=== PATIENT | female | born 1975 | race Two or more races ===

== ENCOUNTER 2018-08-27 19:57 | Emergency (ER) | payer OTHER ==
[2018-08-27 20:09] VITALS: BP 124/82; PULSE 76; TEMP 97.9; BMI 37.0
--- NOTE | 2018-08-27 20:12 | PDOC ---
Rapid Medical Evaluation Chief Complaint: Pain, Acute Medical Evaluation: Allergies Allergy/AdvReac Type Severity Reaction Status Date / Time No Known Allergies Allergy Verified 11/18/14 19:33 08/27/18 20:06 I have performed a brief in-person evaluation of this patient. The patient presents with a chief complaint of:right knee pain Pertinent physical exam findings: swelling and tenderness to right knee, walks with limp I have ordered the following: right knee xray The patient will proceed to the ED for further evaluation. 08/27/18 20:10 Discharge Disposition - Referrals Referrals: Kimi Richards [Primary Care Provider] - - Patient Instructions - Post Discharge Activity
--- NOTE | 2018-08-27 20:58 | PDOC ---
History of Present Illness - General Chief Complaint: Pain, Acute Stated Complaint: RIGHT KNEE PAIN Time Seen by Provider: 08/27/18 20:48 - History of Present Illness Initial Comments: 08/27/18 20:55 43-year-old female with a past medical history significant for GERD and depression presents for evaluation of atraumatic onset of right knee pain 5 days first noticed on the treadmill while at the gym Past History - Past Medical History Allergies/Adverse Reactions: Allergies Allergy/AdvReac Type Severity Reaction Status Date / Time No Known Allergies Allergy Verified 08/27/18 20:09 Home Medications: Ambulatory Orders Fluoxetine HCl [Prozac] 40 mg PO HS 11/18/14 COPD: No Psychiatric Problems: Yes (DEPRESSION) - Surgical History Abdominal Surgery: Yes - Suicide/Smoking/Psychosocial Hx Smoking History: Never smoked Hx Alcohol Use: No Review of Systems - Review of Systems Musculoskeletal: Yes: Joint Pain *Physical Exam - Vital Signs Last Vital Signs Temp Pulse Resp BP Pulse Ox 97.9 F 76 18 124/82 98 08/27/18 20:06 08/27/18 20:06 08/27/18 20:06 08/27/18 20:06 08/27/18 20:06 - Physical Exam Comments: 08/27/18 20:56 Right knee skin color and temperature are normal extensor mechanism is intact range of motion 0-90 beyond that causes pain. She has mild medial lateral joint line tenderness no instability or patellofemoral instability. Thigh and calf are soft and nontender she is neurovascularly intact. Moderate Sedation - Procedure Monitoring Vital Signs: Procedure Monitoring Vital Signs Temperature 97.9 F 08/27/18 20:06 Pulse Rate 76 08/27/18 20:06 Respiratory Rate 18 08/27/18 20:06 Blood Pressure 124/82 08/27/18 20:06 O2 Sat by Pulse Oximetry (%) 98 08/27/18 20:06 *DC/Admit/Observation/Transfer Diagnosis at time of Disposition: Knee pain, right - Discharge Dispostion Disposition: HOME Condition at time of disposition: Stable Decision to Admit order: No - Referrals Referrals: Kimi Richards [Primary Care Provider] - Alexi Adam MD [Staff Physician] - - Patient Instructions Printed Discharge Instructions: DI for Knee Pain Additional Instructions: He may weight-bear as tolerated with use of the knee immobilizer and crutches. He may come out of the knee immobilizer multiple times a day to do gentle range of motion of the knee. Tylenol as directed for pain. Avoid anti-inflammatories because of the omeprazole and your stomach issues. Follow-up with orthopedics in 2-3 days for further evaluation and treatment options. - Post Discharge Activity
== END 2018-08-27 21:03 | disposition home or self-care (01) ==
LOC: JERFT 19:57
DX: M25.561 Pain in right knee (principal); F32.9 Major depressive disorder, single episode, unspecified; K21.9 Gastro-esophageal reflux disease without esophagitis
CPT/HCPCS: 99281-25

== ENCOUNTER 2019-08-29 13:58 | Emergency (ER) | payer OTHER ==
--- NOTE | 2019-08-29 14:06 | PDOC ---
Rapid Medical Evaluation Chief Complaint: Pain, Acute Time Seen by Provider: 08/29/19 14:04 Medical Evaluation: Allergies Allergy/AdvReac Type Severity Reaction Status Date / Time No Known Allergies Allergy Verified 08/27/18 20:09 08/29/19 14:04 I have performed a brief in-person evaluation of this patient. The patient presents with a chief complaint of:neck pain x3 days, felt pinch and no relief with Motrin Pertinent physical exam findings: tender tight muscles to neck I have ordered the following: nothing The patient will proceed to the ED for further evaluation. Discharge Disposition - Diagnosis Neck pain on left side - Referrals - Patient Instructions - Post Discharge Activity
[2019-08-29 14:07] VITALS: BP 117/77; PULSE 72; TEMP 98.5; BMI 36.6
--- NOTE | 2019-08-29 14:56 | PDOC ---
History of Present Illness - General Chief Complaint: Pain, Acute Stated Complaint: LT SIDE NECK PAIN/EARACHE Time Seen by Provider: 08/29/19 14:04 History Source: Patient - History of Present Illness Initial Comments: 08/29/19 16:45 Chief complaint: Neck pain Patient 44-year-old female who states she was driving on Monday, 2 days ago and felt a pinch to her left neck. Since then the area has hurt, it is to the side front on the left side and she feels pulsating in her ear and pain. No fever. No nausea or vomiting. No numbness. Patient states she feels a little dizzy sometimes. GENERAL/CONSTITUTIONAL: No fever, weakness. dizziness HEAD, EYES, EARS, NOSE AND THROAT: No change in vision. No ear pain or discharge. No sore throat. CARDIOVASCULAR: No chest pain RESPIRATORY: No shortness of breath or cough GASTROINTESTINAL: No pain, nausea, vomiting, diarrhea or constipation GENITOURINARY: No dysuria MUSCULOSKELETAL: +neck, noback pain SKIN: No rash NEUROLOGIC: No headache, vertigo, loss of consciousness, or loss of sensation. GENERAL: The patient is awake, alert, and fully oriented, in no acute distress. HEAD: Normal with no signs of trauma. EYES: Pupils equal, round and reactive to light, sclera anicteric, conjunctiva clear. ENT: Ears clear, TMs normal pharynx: no erythema, no exudate, uvula midline, no sub-lingular swelling NECK: supple, questionable slight swelling on the left anterior area, tender, no bruits, no obvious palpable lymphadenopathy CHEST: clear, nontender, rr ABD: soft, nontender BACK: no tenderness or signs of injury EXTREMITIES: Normal range of motion, no edema. NEUROLOGICAL: Normal speech, normal gait. Cranial nerves II through XII grossly intact, no gross focal abnormalities SKIN: Warm, Dry Past History - Past Medical History Allergies/Adverse Reactions: Allergies Allergy/AdvReac Type Severity Reaction Status Date / Time No Known Allergies Allergy Verified 08/29/19 14:07 Home Medications: Ambulatory Orders Fluoxetine HCl [Prozac] 40 mg PO HS 11/18/14 Oxycodone HCl/Acetaminophen [Percocet 5-325 mg Tablet] 1 tab PO Q4H PRN #20 tablet MDD 6 08/29/19 COPD: No Psychiatric Problems: Yes (DEPRESSION) - Surgical History Abdominal Surgery: Yes - Psycho Social/Smoking Cessation Hx Smoking History: Never smoked Hx Alcohol Use: No *Physical Exam - Vital Signs Last Vital Signs Temp Pulse Resp BP Pulse Ox 98.5 F 72 18 117/77 98 08/29/19 14:00 08/29/19 14:00 08/29/19 14:00 08/29/19 14:00 08/29/19 14:00 ED Treatment Course - LABORATORY CBC & Chemistry Diagram: 08/29/19 15:25 08/29/19 15:25 Medical Decision Making - Medical Decision Making 08/29/19 16:49 44-year-old female with no significant medical history with sudden onset of left neck pain 2 days ago, tenderness, pulsating to the left ear, with questionable on and off dizziness. Will get labs, CTA neck and head to rule out any acute pathology, dissection. 08/29/19 18:33 CTA imaging is negative, will treat with pain medicine. Discussed issues, findings, results, applicable medications and treatments and follow-up. All these were understood and all questions were answered Discharge - Discharge Information Problems reviewed: Yes Clinical Impression/Diagnosis: Neck pain on left side Condition: Stable Disposition: HOME - Admission No - Additional Discharge Information Prescriptions: Oxycodone HCl/Acetaminophen [Percocet 5-325 mg Tablet] 1 tab PO Q4H PRN #20 tablet MDD 6 PRN Reason: Pain Prescription Drug Monitoring Program (I-STOP) results: I-STOP not reviewed - Follow up/Referral - Patient Discharge Instructions Additional Instructions: No heavy lifting or bending Apply ice to the area 20 minutes every 2 hours for the next 2 days Continue taking Motrin 600 mg every 6 hours for pain. If still in pain he can also take Percocet one to 2 tablets every 4 hours. Return to the nearest ER if numbness, weakness, severe pain, problems with urinating or having bowel movements. You were given a copy of the CT report, bring this to your doctor and make an appointment in the next few days for reevaluation - Post Discharge Activity
[2019-08-29 15:35] LABS: BASO % 0.9 % (0-2.0); EOS % 2.4 % (0-4.5); HEMATOCRIT 36.8 % (32.4-45.2); HEMOGLOBIN 11.9 GM/dL (10.7-15.3); LYMPH % 30.8 % (8-40); MCH 26.6 pg (25.7-33.7); MCHC 32.4 g/dl (32.0-36.0); MEAN PLT VOLUME 8.6 fl (7.5-11.1); MONO % 4.7 % (3.8-10.2); NEUT % 61.2 % (42.8-82.8); PLATELET COUNT 385 K/MM3 (134-434); RBC 4.49 M/mm3 (3.60-5.2); RDW 17.1 % (11.6-15.6); WHITE BLOOD COUNT 7.7 K/mm3 (4.0-10.0)
[2019-08-29] MEDS ORDERED: diazePAM 5 MG TABLET PO ONE (15:37)
[2019-08-29 15:48] LABS: INR 0.95 (0.83-1.09); PROTHROMBIN TIME (PATIENT) 11.2 SEC (9.7-13.0)
[2019-08-29] MEDS ORDERED: diazePAM 5 MG TABLET ONE (15:49)
[2019-08-29 15:51] LABS: ACTIVATED PTT 40.5 SECONDS (25.2-36.5)
[2019-08-29 16:07] LABS: ALBUMIN 3.8 g/dl (3.4-5.0); BILIRUBIN,TOTAL 0.2 mg/dL (0.2-1); BLOOD UREA NITROGEN 10.6 mg/dL (7-18); CREATININE 0.7 mg/dL (0.55-1.3); POTASSIUM 4.2 mmol/L (3.5-5.1); TOT PROT 7.7 g/dl (6.4-8.2)
[2019-08-29] MEDS ORDERED: KETOROLAC TROMETHAMINE 30 MG/1 ML VIAL IM ONE (18:34)
[2019-08-29] MEDS ORDERED: KETOROLAC TROMETHAMINE 30 MG/1 ML VIAL ONE (18:36)
== END 2019-08-29 18:49 | disposition home or self-care (01) ==
LOC: JERFT 13:58
PROC: 3E0233Z Introduction of Anti-inflammatory into Muscle, Percutaneous Approach (ICD-10-PCS; principal; 2019-08-29)
DX: M54.2 Cervicalgia (principal); F32.9 Major depressive disorder, single episode, unspecified
CPT/HCPCS: 36415; 70496-TC; 70498-TC; 80053; 85025; 85610; 85730; 99282-25; Q9967

== ENCOUNTER 2019-12-01 12:25 | Emergency (ER) | payer OTHER ==
[2019-12-01 12:31] VITALS: BP 104/64; PULSE 82; TEMP 98; BMI 34.7
[2019-12-01] MEDS ORDERED: KETOROLAC TROMETHAMINE 30 MG/1 ML VIAL IM ONE (12:55)
[2019-12-01] MEDS ORDERED: KETOROLAC TROMETHAMINE 30 MG/1 ML VIAL ONE (13:52)
--- NOTE | 2019-12-01 13:53 | PDOC ---
History of Present Illness - General Chief Complaint: Pain Stated Complaint: LFT KNEE PAIN Time Seen by Provider: 12/01/19 12:52 History Source: Patient Exam Limitations: No Limitations - History of Present Illness Initial Comments: 12/01/19 13:55 HISTORY OF PRESENT ILLNESS: 44-year-old woman past medical history of gastritis and right knee pain who presents emergency department for evaluation of atraumatic left knee pain which is progressively worsening over the past 2 to 3 weeks. Patient reports she has pain when she stands for long periods of time and occasionally while walking. She denies any intermittent claudication. No recent travel or sick contacts. PAST MEDICAL HISTORY: See HPI SURGICAL HISTORY: Denies ALLERGIES: No known drug allergies REVIEW OF SYSTEMS General/Constitutional: Denies fever or chills. Denies weakness, weight change. HEENT: Denies change in vision. Denies ear pain or discharge. Denies sore throat. Cardiovascular: Denies chest pain or shortness of breath. Respiratory: Denies cough, wheezing, or hemoptysis. Gastrointestinal: Denies nausea, vomiting, diarrhea or constipation. Denies rectal bleeding. Genitourinary: Denies dysuria, frequency, or change in urination. Musculoskeletal: See HPI Skin and breasts: Denies rash or easy bruising. Neurologic: Denies headache, vertigo, loss of consciousness, or loss of sensation. Psychiatric: Denies depression or anxiety. Endocrine: Denies increased thirst. Denies abnormal weight change. Hematologic/Lymphatic: Denies anemia, easy bleeding, or history of blood clots. Allergic/Immunologic: Denies hives or skin allergy. Denies latex allergy. PHYSICAL EXAM General Appearance: Well-appearing, appropriately dressed. No apparent distress, no intoxication. Vascular Pulses: Dorsalis-Pedis (R): 2+, Dorsalis-Pedis (L): 2+ Musculoskeletal/Extremities: Normal inspection. FROM of all extremities, normal capillary refill. Pelvis Stable. No CVA tenderness. No tenderness to extremities, pedal edema, swelling, erythema or deformity. Patella is mobile. Negative Phan's sign. Neurovascularly intact. Past History - Past Medical History Allergies/Adverse Reactions: Allergies Allergy/AdvReac Type Severity Reaction Status Date / Time No Known Allergies Allergy Verified 12/01/19 12:31 Home Medications: Ambulatory Orders Fluoxetine HCl [Prozac] 40 mg PO HS 11/18/14 Oxycodone HCl/Acetaminophen [Percocet 5-325 mg Tablet] 1 tab PO Q4H PRN #20 tablet MDD 6 08/29/19 COPD: No Psychiatric Problems: Yes (DEPRESSION) - Surgical History Abdominal Surgery: Yes - Psycho Social/Smoking Cessation Hx Smoking History: Never smoked Hx Alcohol Use: No *Physical Exam - Vital Signs Last Vital Signs Temp Pulse Resp BP Pulse Ox 98.0 F 82 18 104/64 98 12/01/19 12:29 12/01/19 12:29 12/01/19 12:29 12/01/19 12:29 12/01/19 12:29 ED Treatment Course - RADIOLOGY Radiology Studies Ordered: Category Date Time Status KNEE 2 POS-LEFT [RAD] Stat Radiology 12/01/19 12:55 Completed DUPLEX VASCUL US-1 LEG [US] Stat Ultrasound 12/01/19 12:55 Completed Medical Decision Making - Medical Decision Making 12/01/19 13:52 A/P: 44-year-old woman with atraumatic left knee pain Full range of motion noted. Patella is mobile No palpable masses, cords or calf swelling noted No bony tenderness, deformity, crepitus or step-off is present to the bones of the left leg X-rays, ultrasounds, Toradol 30 mg IM now X-rays of the knee as read by Dr. Canales: No acute left knee pathology. No comparison studies. Ultrasound is read by Dr. Cuevas: No DVT is identified involving the left leg. Note is made of an approximate 2.7 x 1.5 x 1.0 cm popliteal fossa cyst without obvious rupture or dissection. Discharge home with orthopedic follow-up I discussed the physical exam findings, ancillary test results and final diagnoses with the patient. I answered all of the patient's questions. The patient was satisfied with the care received and felt comfortable with the discharge plan and treatment plan. The patient will call their primary care physician within 24 hours to arrange follow-up and will return to the Emergency Department with any new, persistent or worsening symptoms. Portions of this note have been documented using voice recognition software. As a result, errors may occur in the warehouse distribution associate process. Effort has been made to correct all grammatical and warehouse distribution associate error, but some may have been missed which may produce sporadic inaccurate warehouse distribution associate or nonsensical phrases. Discharge - Discharge Information Problems reviewed: Yes Clinical Impression/Diagnosis: Conklin's cyst of knee Qualifiers: Laterality: left Qualified Code(s): M71.22 - Synovial cyst of popliteal space [Conklin], left knee Condition: Stable Disposition: HOME - Admission No - Follow up/Referral Referrals: Patrick Sousa MD [Staff Physician] - - Patient Discharge Instructions Additional Instructions: There is usually nothing to do for a Conklin's cyst. Take Tylenol and Motrin as needed for pain. If needed follow-up with orthopedist at the number provided for continued evaluation. Return to the emergency department for any new or worsening symptoms. Thank you very much for choosing us to provide your emergent healthcare needs. - Post Discharge Activity
== END 2019-12-01 13:56 | disposition home or self-care (01) ==
LOC: JERFT 12:25
PROC: 3E0233Z Introduction of Anti-inflammatory into Muscle, Percutaneous Approach (ICD-10-PCS; principal; 2019-12-01)
DX: M71.22 Synovial cyst of popliteal space [Baker], left knee (principal); F32.9 Major depressive disorder, single episode, unspecified
CPT/HCPCS: 73560-TC-LT-FY; 93971-TC; 96372; 99284-25

== ENCOUNTER 2019-12-08 19:43 | Emergency (ER) | payer OTHER ==
--- NOTE | 2019-12-08 20:01 | PDOC ---
Rapid Medical Evaluation Medical Evaluation: Allergies Allergy/AdvReac Type Severity Reaction Status Date / Time No Known Allergies Allergy Verified 12/01/19 12:31 12/08/19 19:53 HPI: COVID-19 CDC guideline data points: The patient is a 44 F presents with exposure to, confirmed COVID-19 with associated symptoms of fever, dry cough, SOB, anorexia, no taste or smell, or diarrhea x 8 days. Patient works at [employer], complicated by this/these comorbidities: asthma, gastritis ROS: difficulty breathing, (+) shortness of breath, chest pain, lightheadedness, dizziness, nausea, vomiting and (+) diarrhea. Other 12 point ROS reviewed and negative. Exam: General: NAD, Well-Appearing, Awake, Alert Oriented x3. Vital signs stable. ENT: No rhinorrhea or nasal congestion. Neck: FROM, no midline tenderness. Lungs: Clear to auscultation bilaterally without wheezes, rhonchi or rales. Normal excursion. Patient is able to speak in full sentences. Heart: HR: Regular rhythm, S1-S2 present, no murmurs rubs or gallops. Abdomen: Non-distended. MSK/Extremities: No decrease ROM, No obvious deformities. No obvious cyanosis noted. Neuro: Normal Gait, Cranial Nerves II through XII Grossly Intact. Skin: No obvious rashes, bruising. Color Normal Appearing. Assessment/Plan: [Cough/fever] Patient has a history of this/these comorbidities: Asthma denies recent travel and known COVID exposure. 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
[2019-12-08 20:17] VITALS: BP 147/90; PULSE 81; TEMP 98.5; BMI 34.4
--- NOTE | 2019-12-08 20:59 | PDOC ---
Rapid Medical Evaluation Chief Complaint: Cold Symptoms Time Seen by Provider: 12/08/19 19:57 Medical Evaluation: Allergies Allergy/AdvReac Type Severity Reaction Status Date / Time No Known Allergies Allergy Verified 12/01/19 12:31 Vital Signs Temp Pulse Resp BP Pulse Ox 98.5 F 81 20 147/90 99 12/08/19 20:11 12/08/19 20:11 12/08/19 20:11 12/08/19 20:11 12/08/19 20:11 12/08/19 20:53 HPI: COVID-19 CDC guideline data points: The patient is a 44 y/o female presents with possible exposure to, suspected, or confirmed COVID-19 with associated symptoms of cough and sob x 1 week. Pt has hx of asthma and using the albuterol inhaler as needed with good effect. pt is an [employer] at [employer] office ROS: NEGATIVE: , chest pain, lightheadedness, dizziness, nausea, vomiting and diarrhea. Other 12 point ROS reviewed and negative. Exam: General: NAD, Well-Appearing, Awake, Alert Oriented x3. Vital signs stable. ENT: No rhinorrhea or nasal congestion. Neck: FROM, no midline tenderness. Lungs: Clear to auscultation bilaterally without wheezes, rhonchi or rales. Normal excursion. Patient is able to speak in full sentences. Heart: HR: [81 ] Regular rhythm, S1-S2 present, no murmurs rubs or gallops. Abdomen: Non-distended. MSK/Extremities: No decrease ROM, No obvious deformities. No obvious cyanosis noted. Neuro: Normal Gait, Cranial Nerves II through XII Grossly Intact. Skin: No obvious rashes, bruising. Color Normal Appearing. Assessment/Plan: [Cough/fever] Patient has a history of asthma and was ordered for cxr and covid testing 12/08/19 20:56 CXR shows left infiltrate. Pt ambulated ED ramp and repeat vitals 97% on RA, 87 pulse ... Azithromycin ordered 12/08/19 20:59 Discharge Disposition - Diagnosis Pneumonia - Discharge Dispostion Disposition: HOME Condition at time of disposition: Good - Referrals - Patient Instructions Printed Discharge Instructions: [facility]-Coronavirus Instructions, [facility] COVID-19 Isolation Protocol, DI for Pneumonia -- Adult Additional Instructions: You were seen for your cough and possible Coronavirus (COVID-19) Take antibiotic as prescribed and quarantine until you receive results Take Tylenol 650 mg every 6 hours as needed for fever or pain. You may take Robitussin or other [id number] cough syrup. Follow the dosing instructions on the bottle. Warm tea, honey, and salt water gargles may help your symptoms. Please take precautions and self quarantine for 2 weeks and follow-up with your primary care doctor and the Department of Health. Return to the nearest emergency department for shortness of breath, difficulty breathing, chest pain, or if you have any changes in your symptoms. - Post Discharge Activity
== END 2019-12-08 21:12 ==
LOC: JER 19:43
DX: J18.9 Pneumonia, unspecified organism (principal)
CPT/HCPCS: 71045-TC-FY; 99283-25; U0002

== ENCOUNTER 2020-07-20 09:00 | Emergency (ER) | payer OTHER ==
[2020-07-20 09:14] VITALS: BP 125/70; PULSE 61; TEMP 98.7; BMI 38.5
[2020-07-20] MEDS ORDERED: KETOROLAC TROMETHAMINE 30 MG/1 ML VIAL ONE (09:36)
[2020-07-20] MEDS ORDERED: KETOROLAC TROMETHAMINE 30 MG/1 ML VIAL IM ONE (09:36)
== END 2020-07-20 10:14 | disposition home or self-care (01) ==
LOC: JERFT 09:00
PROC: 3E0233Z Introduction of Anti-inflammatory into Muscle, Percutaneous Approach (ICD-10-PCS; principal; 2020-07-20)
DX: M25.561 Pain in right knee (principal); G89.29 Other chronic pain
CPT/HCPCS: 73562-TC-RT-FY; 99284-25

== ENCOUNTER 2020-08-20 09:23 | Day surgery (SDC) | payer OTHER ==
[2020-08-18 16:19] VITALS: BMI 38.0
[2020-08-20] MEDS ORDERED: MIDAZOLAM HCL 2 MG/2 ML SINGLE DOSE VIAL ONE (11:40)
[2020-08-20] MEDS ORDERED: PROPOFOL 20 ML ONE ×2 (11:40→13:11)
[2020-08-20] MEDS ORDERED: ONDANSETRON 4 MG/2 ML VIAL ONE ×3 (11:40→13:11)
[2020-08-20] MEDS ORDERED: DEXAMETHASONE SOD PHOSPHATE 4 MG/1 ML VIAL ONE ×3 (11:40→13:11)
[2020-08-20] MEDS ORDERED: KETOROLAC TROMETHAMINE 30 MG/1 ML VIAL ONE (13:11)
[2020-08-20] MEDS ORDERED: ceFAZolin SODIUM 1 GM VIAL ONE (13:11)
[2020-08-20] MEDS ORDERED: BUPIVACAINE HCL/PF 0.25% (2.5MG/ML) 10 ML VIAL IJ ONE (13:31)
[2020-08-20] MEDS ORDERED: LACTATED RINGERS SOLUTION 1,000 ML IV SCH (14:00)
[2020-08-20] MEDS ORDERED: oxyCODONE HCL 5 MG TABLET PO PRN ×2 (14:00)
[2020-08-20] MEDS ORDERED: ONDANSETRON 4 MG/2 ML VIAL IVPUSH PRN (14:00)
[2020-08-20 15:09] VITALS: TEMP 97.7
[2020-08-20] MEDS ORDERED: oxyCODONE HCL 5 MG TABLET ONE (15:17)
[2020-08-20 16:20] VITALS: BP 109/69; PULSE 68
== END 2020-08-20 16:05 | disposition home or self-care (01) ==
LOC: FASU 09:23
PROVIDERS: ATTEND Orthopaedic Surgery Sports Medicine
PROC: 0SBC4ZZ Excision of Right Knee Joint, Percutaneous Endoscopic Approach (ICD-10-PCS; principal; 2020-08-20 13:17)
DX: S83.241A Other tear of medial meniscus, current injury, right knee, initial encounter (principal); X58.XXXA Exposure to other specified factors, initial encounter; Y93.9 Activity, unspecified; Y92.9 Unspecified place or not applicable
CPT/HCPCS: 84703; 94760

== ENCOUNTER 2020-10-17 13:39 | Emergency (ER) | payer OTHER ==
[2020-10-17 14:10] VITALS: BP 111/67; PULSE 69; TEMP 98; BMI 38.0
[2020-10-17] MEDS ORDERED: KETOROLAC TROMETHAMINE 60 MG/2 ML VIAL IM ONE (15:17)
[2020-10-17] MEDS ORDERED: KETOROLAC TROMETHAMINE 30 MG/1 ML VIAL ONE (15:45)
== END 2020-10-17 16:24 | disposition home or self-care (01) ==
LOC: JER 13:39
PROC: 3E0233Z Introduction of Anti-inflammatory into Muscle, Percutaneous Approach (ICD-10-PCS; principal; 2020-10-17)
DX: M25.562 Pain in left knee (principal)
CPT/HCPCS: 73562-TC-LT-FY; 99284-25

== ENCOUNTER 2022-01-27 14:53 | Emergency (ER) | payer OTHER ==
[2022-01-27 15:01] VITALS: BP 108/73; PULSE 66; TEMP 98.6; BMI 37.0
[2022-01-27] MEDS ORDERED: LIDOCAINE 5% TOPICAL PATCH TP ONE (15:31)
[2022-01-27] MEDS ORDERED: KETOROLAC TROMETHAMINE 30 MG/1 ML VIAL IM ONE (15:31)
[2022-01-27] MEDS ORDERED: LIDOCAINE 5% TOPICAL PATCH ONE (15:42)
[2022-01-27] MEDS ORDERED: KETOROLAC TROMETHAMINE 30 MG/1 ML VIAL ONE (15:42)
== END 2022-01-27 16:56 | disposition home or self-care (01) ==
LOC: JERFT 14:53
PROC: 3E023GC Introduction of Other Therapeutic Substance into Muscle, Percutaneous Approach (ICD-10-PCS; principal; 2022-01-27)
DX: M25.562 Pain in left knee (principal)
CPT/HCPCS: 99284-25

== ENCOUNTER 2022-02-10 09:45 | Day surgery (SDC) | payer OTHER ==
[2022-02-08 11:39] VITALS: BMI 37.0
[2022-02-10] MEDS ORDERED: MIDAZOLAM HCL 2 MG/2 ML SINGLE DOSE VIAL ONE (10:57)
[2022-02-10] MEDS ORDERED: FENTANYL CITRATE/PF 50 MCG/ML VIAL ONE ×4 (10:57→12:43)
[2022-02-10] MEDS ORDERED: BUPIVACAINE HCL/PF 0.25% (2.5MG/ML) 10 ML VIAL ONE (11:00)
[2022-02-10] MEDS ORDERED: LACTATED RINGERS SOLUTION 1,000 ML IV SCH ×2 (11:00)
[2022-02-10] MEDS ORDERED: EPINEPHrine 1:1,000 1,000 MCG/ML ML ONE (11:00)
[2022-02-10] MEDS ORDERED: ONDANSETRON 4 MG/2 ML VIAL ONE ×2 (11:23→12:25)
[2022-02-10] MEDS ORDERED: ceFAZolin SODIUM 1 GM VIAL ONE (11:23)
[2022-02-10] MEDS ORDERED: DEXAMETHASONE SOD PHOSPHATE 4 MG/1 ML VIAL ONE (11:23)
[2022-02-10] MEDS ORDERED: PROPOFOL 20 ML ONE (11:24)
[2022-02-10] MEDS ORDERED: BUPIVACAINE HCL/PF 0.25% (2.5MG/ML) 10 ML VIAL IJ ONE (11:34)
[2022-02-10] MEDS ORDERED: oxyCODONE HCL 5 MG TABLET PO ONE (12:18)
[2022-02-10] MEDS ORDERED: KETOROLAC TROMETHAMINE 30 MG/1 ML VIAL IVPUSH ONE (12:19)
[2022-02-10] MEDS ORDERED: ACETAMINOPHEN 325 MG TABLET (FP) ONE (12:46)
[2022-02-10 13:21] VITALS: PULSE 84; TEMP 98.4
[2022-02-10 13:59] VITALS: BP 126/78
== END 2022-02-10 14:40 | disposition home or self-care (01) ==
LOC: FASU 09:45
PROVIDERS: ATTEND Orthopaedic Surgery Sports Medicine
PROC: 0SBD4ZZ Excision of Left Knee Joint, Percutaneous Endoscopic Approach (ICD-10-PCS; principal; 2022-02-10 11:34)
DX: S83.242A Other tear of medial meniscus, current injury, left knee, initial encounter (principal); X58.XXXA Exposure to other specified factors, initial encounter; Y93.9 Activity, unspecified; Y92.9 Unspecified place or not applicable
CPT/HCPCS: 84703; 94760